=== PATIENT | male | born 1980 | race Hispanic/Latino ===

== ENCOUNTER 2019-10-05 05:13 | Emergency (ER) | payer BC, OTHER ==
[2019-10-05 06:03] LABS: Absolute Lymphocytes (CBC) 1.2 K/uL (0.7-4.9); Basophils % 0.3 % (0-1.3); Hematocrit 46.8 % (39.6-49.0); Lymphocytes % 24.6 % (15.3-44.8); MPV 8.8 fL (7.6-11.3)
[2019-10-05] MEDS ORDERED: AZITHROMYCIN 500 MG INJ IVPB ONE (06:11)
[2019-10-05] MEDS ORDERED: HYDROCODONE/CHLORPHEN 5 ML/OSYR ONE (06:12)
[2019-10-05] MEDS ORDERED: dexAMETHasone 10 MG/ML VIAL ONE (06:12)
[2019-10-05] MEDS ORDERED: NA CHLORIDE 0.9% 1,000 ML ONE (06:13)
[2019-10-05] MEDS ORDERED: CEFTRIAXONE 1000 MG/VIAL ONE (06:13)
[2019-10-05] MEDS ORDERED: NA CHLORIDE 0.9% 250 ML ONE (06:13)
[2019-10-05] MEDS ORDERED: NA CHLORIDE 0.9% 500 ML ONE (06:13)
[2019-10-05] MEDS ORDERED: ALBUTEROL INHALER 60 PUFF/8 GM IH ONE (06:14)
[2019-10-05 06:23] LABS: Albumin 3.8 g/dL (3.4-5.0); Bilirubin Total 0.9 mg/dL (0.2-1.0); Potassium 3.1 mmol/L (3.5-5.1); Protein, Total 8.3 g/dL (6.4-8.2)
--- NOTE | 2019-10-05 06:45 | ER ---
Nurse's Notes [facility] Name: Alon Verde Age: 38 yrs Sex: Male : 1980 Arrival Date: 10/05/2019 Time: 05:15 Bed 20 Private MD: Diagnosis: SARS-associated coronavirus as the cause of diseases classified elsewhere-Covid 19 positive;Fever, unspecified;Cough;Hypokalemia;Acute upper respiratory infection, unspecified Presentation: 10/04 05:26 Chief complaint: Patient states: per pt family was feeling sick this past week. Were mt2 tested for COVID which was positive. Now pt with cough and body aches, having trouble catching breath. Coronavirus screen: Patient reports a cough. Patient reports shortness of breath or difficulty breathing. Patient reports contact with known and/or suspected case of COVID-19. Patient instructed to continue to wear a mask when interacting with others. Patient moved to private room, placed in contact and droplet isolation with eye protection until further assessment. Prior COVID test [facility] has been notified of person under investigation for COVID-19. Ebola Screen: Patient negative for fever greater than or equal to 101.5 degrees Fahrenheit, and additional compatible Ebola Virus Disease symptoms. 05:26 Method Of Arrival: Ambulatory mt2 05:28 Initial Sepsis Screen: Does the patient meet any 2 criteria? No. Patient's initial mt2 sepsis screen is negative. Does the patient have a suspected source of infection? Yes: Productive cough/pneumonia. 05:34 Risk Assessment: Do you want to hurt yourself or someone else? Patient reports no mt2 desire to harm self or others. Onset of symptoms was September 30, 2019. 05:34 Acuity: YELITZA 3 mt2 Triage Assessment: 05:30 General: Appears uncomfortable, Behavior is cooperative. Pain: Complains of pain in mt2 GENERALIZED. Respiratory: Reports shortness of breath cough that is Airway is patent. GI: Reports nausea. : No deficits noted. Derm: No deficits noted. Musculoskeletal: No deficits noted. Historical: - Allergies: 05:30 No Known Allergies; mt2 - Home Meds: 05:30 amlodipine 5 mg tab 1 tab once daily for Hypertension [Active]; lisinopril 20 mg Oral mt2 tab 1 tab once daily for Hypertension [Active]; atenolol 50 mg Oral tab 1 tab once daily for Hypertension [Active]; levothyroxine 75 mcg tab 1 tab once daily for Hypothyroidism [Active]; - PMHx: 05:30 Hypertension; Hypothyroidism; mt2 - Immunization history:: Adult Immunizations up to date. - Social history:: Smoking status: Patient denies any tobacco usage or history of. - Family history:: not pertinent. Screenin:33 Abuse screen: Denies threats or abuse. Nutritional screening: No deficits noted. mt2 Tuberculosis screening: No symptoms or risk factors identified. Fall Risk None identified. Assessment: 05:33 General: Appears uncomfortable. mt2 06:45 Reassessment: Patient and/or family updated on plan of care and expected duration. Pain mt2 level reassessed. 07:35 Reassessment: Patient denies pain at this time. Patient states feeling better. Patient mt2 states symptoms have improved. Vital Signs: 05:26 BP 151 / 113; Pulse 110; Resp 19; Temp 98.8(O); Pulse Ox 96% on R/A; Weight 145.15 kg; mt2 Pain 8/10; 06:30 BP 144 / 81; Pulse 93; Resp 19; Pulse Ox 96% ; Pain 5/10; mt2 07:15 BP 132 / 81; Pulse 89; Resp 16; Temp 98.2(O); Pulse Ox 97% on R/A; Pain 0/10; mt2 [place] Coma Score: 06:30 Eye Response: spontaneous(4). Verbal Response: oriented(5). Motor Response: obeys mt2 commands(6). Total: 15. ED Course: 05:15 Patient arrived in ED. ag3 05:25 Natalia Garcia, RN is Primary Nurse. mt2 05:30 Arm band placed on right wrist. mt2 05:33 Patient has correct armband on for positive identification. Placed in gown. Bed in low mt2 position. Call light in reach. Side rails up X 1. 05:34 Triage completed. mt2 05:34 Nguyễn Cuevas MD is Attending Physician. abdi 05:50 Inserted saline lock: 18 gauge in left antecubital area, using aseptic technique. Blood mt2 collected. 05:50 Initial lab(s) drawn, by me, sent to lab. First set of blood cultures drawn by me. mt2 05:55 Procalcitonin Sent. mt2 05:55 Lactate Sent. mt2 05:55 D-Dimer Sent. mt2 05:55 Blood Culture Adult (2) Sent. mt2 05:55 Comprehensive Metabolic Panel Sent. mt2 05:55 CBC with Diff Sent. mt2 06:05 Second set of blood cultures drawn by me. mt2 06:14 Chest Single View XRAY In Process Unspecified. EDMS 06:31 Blood Culture Adult (2) Sent. mt2 06:40 Procalcitonin Sent. mt2 06:43 Jacob Wilks MD is Referral Physician. abdi 07:35 No provider procedures requiring assistance completed. IV discontinued, intact, mt2 bleeding controlled, No redness/swelling at site. Pressure dressing applied. Administered Medications: Discontinued: NS 0.9% 500 ml IV at bolus once Discontinued: NS 0.9% 1000 ml IV at 125 ml/hr continuous Discontinued: Rocephin 1 grams IV at per protocol once; Given slow IV push per pharmacy instructions Discontinued: Zithromax 500 mg IVPB once over 1 hrs; mix in 250 mL NS 05:59 Drug: NS 0.9% 500 ml Route: IV; Rate: bolus; Site: left antecubital; mt2 06:07 Drug: Decadron - Dexamethasone 10 mg Route: IVP; Site: left antecubital; mt2 06:07 Drug: Rocephin 1 grams Route: IV; Rate: per protocol; Site: left antecubital; mt2 06:10 Drug: NS 0.9% 1000 ml Route: IV; Rate: 125 ml/hr; Site: left antecubital; mt2 06:10 Drug: Tussionex Pennkinetic ER 5 ml Route: PO; mt2 06:12 Drug: Albuterol HFA Inhaler 4 puffs Route: Inhalation; mt2 06:15 Drug: Zithromax 500 mg Route: IVPB; Infused Over: 1 hrs; Site: left antecubital; mt2 06:56 Drug: Potassium Effervescent Tablet 50 mEq Route: PO; mt2 07:17 Drug: Aspirin 162 mg Route: PO; mt2 Outcome: 06:44 Discharge ordered by . abdi 07:35 Discharged to home ambulatory. mt2 07:35 Condition: improved 07:35 Discharge instructions given to patient, Instructed on discharge instructions, follow up and referral plans. medication usage, Demonstrated understanding of instructions, follow-up care, medications, Prescriptions given X 3. 07:36 Patient left the ED. mt2 Signatures: Dispatcher [employer] EDNguyễn Lynn MD MD cha Gomez, Alice ag3 Toscano, Marlene, RN RN mt2
--- NOTE | 2019-10-05 06:45 | EDPHYS ---
Physician Documentation [facility] Name: Alon Verde Age: 38 yrs Sex: Male : 1980 Arrival Date: 10/05/2019 Time: 05:15 Bed 20 Private MD: JIM Physician Nguyễn Cuevas HPI: 10/04 05:48 This 38 yrs old Male presents to ER via Ambulatory with complaints of COVID abdi POSITIVE, COUGH. 05:48 The patient has shortness of breath at rest, with light activity. Onset: The abdi symptoms/episode began/occurred 3 day(s) ago. Duration: The symptoms are continuous, and are steadily getting worse. The patient's shortness of breath has no apparent modifying factors. The patient or guardian reports cough, difficulty breathing. Onset: The symptoms/episode began/occurred. Modifying factors: The symptoms are alleviated by nothing. the symptoms are aggravated by nothing. Associated signs and symptoms: The patient has no apparent associated signs or symptoms. Historical: - Allergies: 05:30 No Known Allergies; mt2 - Home Meds: 05:30 amlodipine 5 mg tab 1 tab once daily for Hypertension [Active]; lisinopril 20 mg Oral mt2 tab 1 tab once daily for Hypertension [Active]; atenolol 50 mg Oral tab 1 tab once daily for Hypertension [Active]; levothyroxine 75 mcg tab 1 tab once daily for Hypothyroidism [Active]; - PMHx: 05:30 Hypertension; Hypothyroidism; mt2 - Immunization history:: Adult Immunizations up to date. - Social history:: Smoking status: Patient denies any tobacco usage or history of. - Family history:: not pertinent. ROS: 05:48 Constitutional: Negative for fever, chills, and weight loss, Eyes: Negative for injury, abdi pain, redness, and discharge, ENT: Negative for injury, pain, and discharge, Neck: Negative for injury, pain, and swelling, Cardiovascular: Negative for chest pain, palpitations, and edema, Abdomen/GI: Negative for abdominal pain, nausea, vomiting, diarrhea, and constipation, Back: Negative for injury and pain, : Negative for injury, bleeding, discharge, and swelling, MS/Extremity: Negative for injury and deformity, Skin: Negative for injury, rash, and discoloration, Neuro: Negative for headache, weakness, numbness, tingling, and seizure, Psych: Negative for depression, anxiety, suicide ideation, homicidal ideation, and hallucinations, Allergy/Immunology: Negative for hives, rash, and allergies, Endocrine: Negative for neck swelling, polydipsia, polyuria, polyphagia, and marked weight changes, Hematologic/Lymphatic: Negative for swollen nodes, abnormal bleeding, and unusual bruising. 05:48 Respiratory: Positive for cough, shortness of breath, at rest. Exam: 05:48 Constitutional: This is a well developed, well nourished patient who is awake, alert, abdi and in no acute distress. Head/Face: Normocephalic, atraumatic. Eyes: Pupils equal round and reactive to light, extra-ocular motions intact. Lids and lashes normal. Conjunctiva and sclera are non-icteric and not injected. Cornea within normal limits. Periorbital areas with no swelling, redness, or edema. ENT: Nares patent. No nasal discharge, no septal abnormalities noted. Tympanic membranes are normal and external auditory canals are clear. Oropharynx with no redness, swelling, or masses, exudates, or evidence of obstruction, uvula midline. Mucous membranes moist. Neck: Trachea midline, no thyromegaly or masses palpated, and no cervical lymphadenopathy. Supple, full range of motion without nuchal rigidity, or vertebral point tenderness. No Meningismus. Chest/axilla: Normal chest wall appearance and motion. Nontender with no deformity. No lesions are appreciated. Cardiovascular: Regular rate and rhythm with a normal S1 and S2. No gallops, murmurs, or rubs. Normal PMI, no JVD. No pulse deficits. Abdomen/GI: Soft, non-tender, with normal bowel sounds. No distension or tympany. No guarding or rebound. No evidence of tenderness throughout. Back: No spinal tenderness. No costovertebral tenderness. Full range of motion. Male : Normal genitalia with no discharge or lesions. MS/ Extremity: Pulses equal, no cyanosis. Neurovascular intact. Full, normal range of motion. Neuro: Awake and alert, GCS 15, oriented to person, place, time, and situation. Cranial nerves II-XII grossly intact. Motor strength 5/5 in all extremities. Sensory grossly intact. Cerebellar exam normal. Normal gait. Psych: Awake, alert, with orientation to person, place and time. Behavior, mood, and affect are within normal limits. 05:48 Respiratory: mild respiratory distress is noted, Respirations: labored breathing, that is mild, Breath sounds: decreased breath sounds, rhonchi, 20. 05:48 Musculoskeletal/extremity: ROM: intact in all extremities, full active range of motion, full passive range of motion, Circulation is intact in all extremities. Sensation intact. Compartment Syndrome exam of affected extremity: is normal. DVT Exam: No signs of deep vein thrombosis. no pain, no swelling, no tenderness, negative Homans' sign noted on exam, no appreciated bluish discoloration, no erythema, no increased warmth. 06:54 ECG was reviewed by the Attending Physician. [facility] Vital Signs: 05:26 BP 151 / 113; Pulse 110; Resp 19; Temp 98.8(O); Pulse Ox 96% on R/A; Weight 145.15 kg; mt2 Pain 8/10; 06:30 BP 144 / 81; Pulse 93; Resp 19; Pulse Ox 96% ; Pain 5/10; mt2 07:15 BP 132 / 81; Pulse 89; Resp 16; Temp 98.2(O); Pulse Ox 97% on R/A; Pain 0/10; mt2 [place] Coma Score: 06:30 Eye Response: spontaneous(4). Verbal Response: oriented(5). Motor Response: obeys mt2 commands(6). Total: 15. MDM: 05:34 Patient medically screened. [facility] 05:53 Differential diagnosis: asthma, Bronchitis Chronic Obstructive Pulmonary Disease abdi bronchitis, flu, URI, pneumonia, pulmonary edema, Pulmonary Embolism Sepsis. Antibiotic administration: Rocephin and Zithromax given. The patient's Wells Deep Vein Thrombosis Score was calculated as follows: Heart Rate >100 BPM (1.5 Pts) Imm/Surg in last 4 wks (1.5 Pts) Total Score: 3-6 Pts - Mod Risk. Differential Diagnosis: Bronchitis Influenza Upper Respiratory Infection Pharyngitis Asthma Exacerbation Viral Syndrome Pneumonia. The patient's pulmonary embolism risk score was calculated as follows: the patients heart rate is greater than 100 beats per minute (1.5 Pts) patient has experienced immobilization or surgery in the last four weeks (1.5 Pts) Total Score: 3-6 points. This patient was found to be at moderate risk for a pulmonary embolism by using the Well's assessment criteria. Immunization status:. Data reviewed: vital signs, nurses notes, lab test result(s), EKG, radiologic studies, plain films. Data interpreted: compliance monitor: rate is 110 beats/min, Pulse oximetry: on room air is 96 %. Interpretation: normal. 06:39 Test interpretation: by ED physician or midlevel provider: ECG. 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 ED course: patient none toxic, moist mm, much improved, will dc and follow up carefully. 10/04 05:48 Order name: CBC with Diff; Complete Time: 06:38 [facility] 10/04 05:48 Order name: Comprehensive Metabolic Panel; Complete Time: 06:38 [facility] 10/04 05:48 Order name: Blood Culture Adult (2) [facility] 10/04 05:48 Order name: D-Dimer; Complete Time: 06:38 [facility] 10/04 05:48 Order name: Lactate; Complete Time: 06:38 [facility] 10/04 05:48 Order name: Procalcitonin [facility] 10/04 05:48 Order name: Chest Single View XRAY [facility] 10/04 06:59 Order name: EKG - Nurse/Tech; Complete Time: 06:59 mt2 10/04 07:09 Order name: EKG; Complete Time: 07:09 [facility] 10/04 07:09 Order name: EKG - Nurse/Tech; Complete Time: 07:10 [facility] EC:54 Rate is 85 beats/min. Rhythm is regular. QRS Morgan is Normal. SD interval is normal. QRS abdi interval is normal. QT interval is normal. No Q waves. T waves are Normal. No ST changes noted. Clinical impression: NSR w/ Non-specific ST/T Changes and No evidence of ischemia. Interpreted by me. Reviewed by me. Administered Medications: Discontinued: NS 0.9% 500 ml IV at bolus once Discontinued: NS 0.9% 1000 ml IV at 125 ml/hr continuous Discontinued: Rocephin 1 grams IV at per protocol once; Given slow IV push per pharmacy instructions Discontinued: Zithromax 500 mg IVPB once over 1 hrs; mix in 250 mL NS 05:59 Drug: NS 0.9% 500 ml Route: IV; Rate: bolus; Site: left antecubital; mt2 06:07 Drug: Decadron - Dexamethasone 10 mg Route: IVP; Site: left antecubital; mt2 06:07 Drug: Rocephin 1 grams Route: IV; Rate: per protocol; Site: left antecubital; mt2 06:10 Drug: NS 0.9% 1000 ml Route: IV; Rate: 125 ml/hr; Site: left antecubital; mt2 06:10 Drug: Tussionex Pennkinetic ER 5 ml Route: PO; mt2 06:12 Drug: Albuterol HFA Inhaler 4 puffs Route: Inhalation; mt2 06:15 Drug: Zithromax 500 mg Route: IVPB; Infused Over: 1 hrs; Site: left antecubital; mt2 06:56 Drug: Potassium Effervescent Tablet 50 mEq Route: PO; mt2 07:17 Drug: Aspirin 162 mg Route: PO; mt2 Disposition: 10/05/19 06:44 Discharged to Home. Impression: SARS-associated coronavirus as the cause of diseases classified elsewhere - Covid 19 positive, Fever, unspecified, Cough, Hypokalemia, Acute upper respiratory infection, unspecified. - Condition is Stable. - Discharge Instructions: Potassium Content of Foods, Fever, Adult, Community-Acquired Pneumonia, Adult, Upper Respiratory Infection, Adult, Cool Mist Vaporizer, Community-Acquired Pneumonia, Adult, [id number], Cough, Adult, [id number], Aspirin and Your Heart, Cough, Adult, Fever, Adult, [id number], Hypokalemia. - Prescriptions for dexamethasone 2 mg Oral tablet - take 1 tablet by ORAL route 3 times per day; 18 tablet. Albuterol Sulfate 90 mcg/actuation - inhale 1-2 puff by INHALATION route every 4-6 hours; 1 Inhaler. Guaifenesin AC 10- 100 mg/5 mL Oral Liquid - take 10 milliliters by ORAL route every 4 hours As needed; 180 milliliter. Zithromax 500 mg Oral Tablet - take 1 tablet by ORAL route once daily for 5 days; 5 tablet. - Medication Reconciliation Form, Thank You Letter, Antibiotic Education, Prescription Opioid Use form. - Follow up: Private Physician; When: 2 - 3 days; Reason: Recheck today's complaints, Continuance of care, Re-evaluation by your physician. Follow up: Jacob Wilks MD; When: 2 - 3 days; Reason: Recheck today's complaints, Continuance of care, Re-evaluation by your physician. - Problem is new. - Symptoms have improved. Signatures: Dispatcher [employer] EDNguyễn Lynn MD MD cha Toscano, Marlene RN RN mt2 Corrections: (The following items were deleted from the chart) 07:05 07:05 Cardiac monitoring ordered. mt2 mt2 07:06 07:05 IV Saline Lock ordered. vt2 mt2 07:06 07:05 Oxygen Per Protocol ordered. vt2 mt2 07:06 07:05 O2 Sat Monitoring ordered. vt2 mt2 07:07 07:05 Labs collected and sent ordered. vt2 vt2 07:10 06:44 10/05/2019 06:44 Discharged to Home. Impression: SARS-associated coronavirus as abdi the cause of diseases classified elsewhere - Covid 19 positive; Fever, unspecified; Cough; Hypokalemia. Condition is Stable. Forms are Medication Reconciliation Form, Thank You Letter, Antibiotic Education, Prescription Opioid Use. Follow up: Private Physician; When: 2 - 3 days; Reason: Recheck today's complaints, Continuance of care, Re-evaluation by your physician. Follow up: Jacob Wilks; When: 2 - 3 days; Reason: Recheck today's complaints, Continuance of care, Re-evaluation by your physician. Problem is new. Symptoms have improved. abdi 07:36 07:10 10/05/2019 06:44 Discharged to Home. Impression: SARS-associated coronavirus as mt2 the cause of diseases classified elsewhere - Covid 19 positive; Fever, unspecified; Cough; Hypokalemia; Acute upper respiratory infection, unspecified. Condition is Stable. Discharge Instructions: Potassium Content of Foods, Fever, Adult, Community-Acquired Pneumonia, Adult, Cool Mist Vaporizer, Community-Acquired Pneumonia, Adult, [id number], Cough, Adult, [id number], Cough, Adult, Fever, Adult, [id number], Hypokalemia. Prescriptions for dexamethasone 2 mg Oral tablet - take 1 tablet by ORAL route 3 times per day; 18 tablet, Albuterol Sulfate 90 mcg/actuation - inhale 1-2 puff by INHALATION route every 4-6 hours; 1 Inhaler, Guaifenesin AC 10-100 mg/5 mL Oral Liquid - take 10 milliliters by ORAL route every 4 hours As needed; 180 milliliter, Zithromax 500 mg Oral Tablet - take 1 tablet by ORAL route once daily for 5 days; 5 tablet. and Forms are Medication Reconciliation Form, Thank You Letter, Antibiotic Education, Prescription Opioid Use. Follow up: Private Physician; When: 2 - 3 days; Reason: Recheck today's complaints, Continuance of care, Re-evaluation by your physician. Follow up: Jacob Wilks; When: 2 - 3 days; Reason: Recheck today's complaints, Continuance of care, Re-evaluation by your physician. Problem is new. Symptoms have improved. abdi
[2019-10-05] MEDS ORDERED: POTASSIUM CL SA 10 MEQ TAB PO ONE (06:55)
[2019-10-05] MEDS ORDERED: ASPIRIN EC 81 MG TAB PO ONE (07:22)
[2019-10-05 08:04] VITALS: BP 151/113; TEMP 98.8; O2SAT 96
--- NOTE | 2019-10-05 20:20 | RAD REPORT ---
EXAM DESCRIPTION: RAD - Chest Single View - 10/05/2019 6:14 am CLINICAL HISTORY: COUGH TECHNIQUE: Frontal view of the chest. COMPARISON: No relevant prior studies available. FINDINGS: Lungs: Unremarkable. No consolidation. Pleural space: Unremarkable. No pneumothorax. Heart: Unremarkable. No cardiomegaly. Mediastinum: Unremarkable. Bones/joints: Unremarkable. IMPRESSION: No abnormality noted. Electronically signed by: Marianela Hagen MD 10/05/2019 6:28 AM CDT Due to temporary technical issues with the PACS/Fluency reporting system, reports are being signed by the in house radiologist without review as a courtesy to ensure prompt reporting. The interpreting r adiologist is fully responsible for the content of the report.
--- NOTE | 2019-10-07 08:12 | EKG ---
Test Date: 2019-10-05 Test Time: 06:53:23 [employer]hematician Research: MARIA VICTORIA MEASUREMENT RESULTS: Intervals: Rate: 83 SD: 138 QRSD: 102 QT: 370 QTc: 434 [place]: P: 31 SD: 138 QRS: -47 T: 24 INTERPRETIVE STATEMENTS: Normal sinus rhythm Left axis deviation Cannot rule out Anterior infarct, age undetermined Abnormal ECG No previous ECG available for comparison Electronically Signed On 10-07-19 08:09:15 CDT by Jayy Baker
== END 2019-10-05 07:36 | disposition home or self-care (01) ==
LOC: ER 05:13
DX: U07.1 COVID-19 (principal); J06.9 Acute upper respiratory infection, unspecified; E87.6 Hypokalemia; R50.9 Fever, unspecified; I10 Essential (primary) hypertension; E03.9 Hypothyroidism, unspecified
CPT/HCPCS: 93005; 87040 ×2; 85025; 36415; 85379; 83605; 80053; 84145; 71045; 96375; 96374; 99284; J0456; J1100; J7050; J7040; J7030